=== PATIENT | female | born 1960 | race Caucasian/White ===

== ENCOUNTER → 2016-09-04 | Outpatient (CLI) | payer BC ==
[2016-09-04 19:18] LABS: CORTISOL AM 24.4 UG/DL (4.3-22.4); FOLATE > 24.0 NG/ML; VITAMIN B12 LEVEL 750 PG/ML
[2016-09-04 19:29] LABS: ALBUMIN 3.8 GM/DL (3.2-5.2); ALBUMIN/GLOBULIN RATIO 1.12 (1.00-1.93); ALKALINE PHOSPHATASE 71 U/L (45-117); ALT/SGPT 46 U/L (12-78); ANION GAP 8 MEQ/L (8-16); AST/SGOT 30 U/L (15-37); BILIRUBIN,TOTAL 0.4 MG/DL (0.2-1.0); BLOOD UREA NITROGEN 11 MG/DL (7-18); CARBON DIOXIDE LEVEL 29 MEQ/L (21-32); CHLORIDE LEVEL 102 MEQ/L (98-107); CHOLESTEROL LEVEL 194 MG/DL (<200); FERRITIN 45 NG/ML (8-252); FREE T4 1.38 NG/DL (0.76-1.46); GLOMERULAR FILTRATION RATE > 60.0 (>51); GLUCOSE, FASTING 92 MG/DL (70-105); POTASSIUM SERUM 4.4 MEQ/L (3.5-5.1); SODIUM LEVEL 139 MEQ/L (136-145); TOTAL PROTEIN 7.2 GM/DL (6.4-8.2); TRIGLYCERIDES LEVEL 86 MG/DL (<150)
--- NOTE | 2016-09-05 02:03 | REP ---
Clinical: Pain. Technique: Neutral and frog lateral views of the left hip. Findings: Age-related changes include subtle increased sclerosis to the acetabular roof with minimal joint space narrowing. No overt osteoarthritic degenerative changes are otherwise noted. No spurring/osteophyte formation or periarticular calcifications are identified. No evidence for acute or healed fracture/dislocation. Impression: Mild age-related changes. Signed by Melchor Davenport MD 09/05/2016 01:55 A
--- NOTE | 2016-09-05 02:06 | REP ---
Clinical: Pain . Technique: Internal rotation, external rotation, and Y view right shoulder . Findings: No acute fracture or dislocation. The acromioclavicular and glenohumeral joints are intact. No periarticular calcifications or degenerative changes are appreciated. Sub acromial space is normal. Surrounding soft tissues are unremarkable. Impression: Normal age appropriate right shoulder radiographs. Signed by Melchor Davenport MD 09/05/2016 01:56 A
== END ==
LOC: M LRY 10:05
PROVIDERS: ATTEND Nurse Practitioner Family
DX: M79.7 Fibromyalgia (principal); E78.5 Hyperlipidemia, unspecified; E03.9 Hypothyroidism, unspecified; F41.9 Anxiety disorder, unspecified; M25.552 Pain in left hip; M25.511 Pain in right shoulder

== ENCOUNTER → 2016-10-31 | Outpatient (CLI) | payer BC ==
[2016-10-31 17:44] LABS: MEAN CORPUSCULAR HEMOGLOBIN 30.8 pg (27.0-33.0); MEAN CORPUSCULAR VOLUME 93.4 fl (80.0-96.0); RED CELL DISTRIBUTION WIDTH 12.5 % (11.5-14.5); WHITE BLOOD COUNT 7.4 K/mm3 (4.0-10.0)
== END ==
LOC: M LRY 14:21
PROVIDERS: ATTEND Surgery
DX: K50.90 Crohn's disease, unspecified, without complications (principal)

== ENCOUNTER → 2016-12-19 | Outpatient (REF) | payer BC | LOC: M LAB REF 16:10 | PROVIDERS: ATTEND Obstetrics & Gynecology | DX: R35.0 Frequency of micturition (principal); R39.15 Urgency of urination ==

== ENCOUNTER → 2017-03-23 | Outpatient (CLI) | payer BC ==
[2017-03-23 18:55] LABS: FREE T4 1.15 NG/DL (0.76-1.46)
== END ==
LOC: M LRY 13:25
PROVIDERS: ATTEND Nurse Practitioner Family
DX: E03.9 Hypothyroidism, unspecified (principal)

== ENCOUNTER → 2017-05-20 | Outpatient (CLI) | payer BC ==
--- NOTE | 2017-05-20 14:51 | REP ---
Abdominal series: Four views. History: Abdominal pain. Comparison study: November 03, 2016. Findings: Upright chest radiograph is normal. There is no evidence of infiltrate or free subdiaphragmatic air. Heart is not enlarged. Supine and erect views of the abdomen demonstrate a normal bowel gas pattern with air and stool in a nondistended colon. No large or small bowel dilation is seen. Psoas margins and flank stripes are intact. There is no evidence of mass, organomegaly, or pathologic calcification. No significant air fluid level is seen. Impression: Negative abdominal series. Signed by Arcadio Adam MD 05/20/2017 03:18 P
== END ==
LOC: M LRY 11:51
PROVIDERS: ATTEND Nurse Practitioner Family
DX: R10.84 Generalized abdominal pain (principal)

== ENCOUNTER → 2017-06-29 | Outpatient (REF) | payer OTHER | LOC: M SFHCLERA 19:42 | PROVIDERS: ATTEND Nurse Practitioner Family | DX: R30.0 Dysuria (principal) ==

== ENCOUNTER → 2017-07-22 | Outpatient (REF) | payer OTHER | LOC: M LAB REF 17:00 | DX: N39.0 Urinary tract infection, site not specified (principal) ==

== ENCOUNTER → 2017-08-31 | Outpatient (CLI) | payer OTHER ==
[2017-08-31 12:46] LABS: ALBUMIN 3.7 GM/DL (3.2-5.2); ALBUMIN/GLOBULIN RATIO 1.09 (1.00-1.93); ALKALINE PHOSPHATASE 59 U/L (45-117); ALT/SGPT 40 U/L (12-78); ANION GAP 7 MEQ/L (8-16); AST/SGOT 37 U/L (7-37); BILIRUBIN,TOTAL 0.5 MG/DL (0.2-1.0); BLOOD UREA NITROGEN 10 MG/DL (7-18); CARBON DIOXIDE LEVEL 29 MEQ/L (21-32); CHLORIDE LEVEL 104 MEQ/L (98-107); CHOLESTEROL LEVEL 184 MG/DL (<200); CHOLESTEROL RISK RATIO 2.067 (<5); CREATININE FOR GFR 0.74 MG/DL (0.55-1.30); FREE T4 1.35 NG/DL (0.76-1.46); GLOMERULAR FILTRATION RATE > 60.0 (>51); GLUCOSE, FASTING 93 MG/DL (70-100); HDL CHOLESTEROL 89 MG/DL (>40); LDL CHOLESTEROL 82.8 MG/DL (<100); NON-HDL-C 95 MG/DL; POTASSIUM SERUM 4.3 MEQ/L (3.5-5.1); SODIUM LEVEL 140 MEQ/L (136-145); THYROID STIMULATING HORMONE 0.015 uIU/ML (0.358-3.740); TOTAL PROTEIN 7.1 GM/DL (6.4-8.2); TRIGLYCERIDES LEVEL 61 MG/DL (<150)
== END ==
LOC: M LRY 09:42
DX: I10 Essential (primary) hypertension (principal); E03.9 Hypothyroidism, unspecified; E78.5 Hyperlipidemia, unspecified
CPT/HCPCS: 84443

== ENCOUNTER → 2017-09-25 | Outpatient (CLI) | payer BC | LOC: M LRY 09:36 | DX: M50.30 Other cervical disc degeneration, unspecified cervical region (principal) | CPT/HCPCS: 72052 ==

== ENCOUNTER → 2018-02-22 | Outpatient (CLI) | payer BC ==
[2018-02-22 20:58] LABS: THYROID STIMULATING HORMONE 0.117 uIU/ML (0.358-3.740)
== END ==
LOC: M LRY 17:30
DX: E03.9 Hypothyroidism, unspecified (principal)
CPT/HCPCS: 84443

== ENCOUNTER → 2018-02-22 | Outpatient (REF) | payer BC | LOC: M SFHCLERA 09:32 | DX: L81.9 Disorder of pigmentation, unspecified (principal); Z86.008 Personal history of in-situ neoplasm of other site | CPT/HCPCS: 88305 ==

== ENCOUNTER → 2018-07-16 | Outpatient (REF) | payer BC ==
[2018-07-16 13:16] LABS: BASO # 0.1 10^3/uL (0.0-0.2); BASO % 1.1 % (0.0-1.0); EOS # 0.1 10^3/uL (0.0-0.50); EOS % 2.3 % (0.0-3.0); HEMATOCRIT 40.7 % (36.0-47.0); HEMOGLOBIN 13.4 g/dl (12.0-15.5); LYMPH % 37.3 % (24.0-44.0); MEAN CORPUSCULAR HEMOGLOBIN 30.7 pg (27.0-33.0); MEAN CORPUSCULAR HGB CONC 32.9 g/dl (32.0-36.5); MEAN CORPUSCULAR VOLUME 93.3 fl (80.0-96.0); MONO # 0.5 10^3/uL (0.0-0.8); NEUTROPHILS # 2.6 10^3/uL (1.8-7.7); NEUTROPHILS % 50.1 % (36.0-66.0); PLATELET COUNT, AUTOMATED 232 10^3/uL (150-450); RED BLOOD COUNT 4.36 10^6/uL (4.00-5.40); WHITE BLOOD COUNT 5.2 10^3/uL (4.0-10.0)
[2018-07-16 13:24] LABS: ALBUMIN 3.8 GM/DL (3.2-5.2); ALT/SGPT 35 U/L (12-78); BILIRUBIN,TOTAL 0.3 MG/DL (0.2-1.0); BLOOD UREA NITROGEN 12 MG/DL (7-18); CALCIUM LEVEL 8.8 MG/DL (8.5-10.1); CARBON DIOXIDE LEVEL 25 MEQ/L (21-32); CHLORIDE LEVEL 107 MEQ/L (98-107); CREATININE FOR GFR 0.97 MG/DL (0.55-1.30); GLOMERULAR FILTRATION RATE > 60.0 (>51); GLUCOSE, FASTING 84 MG/DL (70-100); POTASSIUM SERUM 3.8 MEQ/L (3.5-5.1); RHEUMATOID FACTOR QUANT < 10.0 IU/ML (<15.0); SODIUM LEVEL 139 MEQ/L (136-145); TOTAL PROTEIN 7.5 GM/DL (6.4-8.2)
[2018-07-16 13:31] LABS: FOLATE 19.8 NG/ML; VITAMIN B12 LEVEL 532 PG/ML
[2018-07-16 14:24] LABS: ERYTHROCYTE SEDIMENTATION RATE 7 mm/hr (0-30)
[2018-07-22 14:13] LABS: ANTINUCLEAR ANTIBODIES DIRECT Negative (Negative); CERULOPLASMIN 25.4 mg/dL (19.0-39.0); COPPER PLASMA 145 ug/dL (72-166); LEAD BLOOD ADULT 2 ug/dL (0-4); MERCURY LEVEL None Detected ug/L (0.0-14.9)
== END ==
LOC: M LABNEURO 09:13
PROVIDERS: ATTEND Psychiatry & Neurology Neurology
DX: G50.0 Trigeminal neuralgia (principal)

== ENCOUNTER → 2018-11-15 | Outpatient (CLI) | payer BC ==
[2018-11-18 00:07] LABS: Lyme Disease IgG/IgM Antibodie <0.91 ISR (0.00-0.90); Lyme Disease IgM Ab Quantitati <0.80 index (0.00-0.79)
== END ==
LOC: M LRY 11:02
PROVIDERS: ATTEND Nurse Practitioner Family
DX: G89.29 Other chronic pain (principal)

== ENCOUNTER → 2018-12-16 | Outpatient (CLI) | payer BC, OTHER ==
--- NOTE | 2018-12-16 13:10 | REP ---
Clinical: Pain with trauma. Technique: AP, lateral, bilateral oblique views of the left first digit. Findings: No acute fracture dislocation. Skeletal structures, joint spaces, and surrounding soft tissues appear relatively normal. No subcutaneous emphysema or foreign body. Impression: No acute fracture or dislocation. Electronically Signed by Melchor Davenport MD 12/16/2018 01:02 P
== END ==
LOC: M LRY 12:36
PROVIDERS: ATTEND Physician Assistant
DX: S69.92XA Unspecified injury of left wrist, hand and finger(s), initial encounter (principal); X58.XXXA Exposure to other specified factors, initial encounter; Y92.89 Other specified places as the place of occurrence of the external cause

== ENCOUNTER → 2018-12-21 | Outpatient (CLI) | payer BC, OTHER ==
[2018-12-21 11:38] LABS: ALBUMIN 3.6 GM/DL (3.2-5.2); ALT/SGPT 21 U/L (12-78); BILIRUBIN,TOTAL 0.4 MG/DL (0.2-1.0); BLOOD UREA NITROGEN 11 MG/DL (7-18); CALCIUM LEVEL 8.6 MG/DL (8.5-10.1); CARBON DIOXIDE LEVEL 27 MEQ/L (21-32); CHLORIDE LEVEL 108 MEQ/L (98-107); CHOLESTEROL LEVEL 193 MG/DL (<200); CHOLESTEROL RISK RATIO 2.144 (<5); CREATININE FOR GFR 0.87 MG/DL (0.55-1.30); GLOMERULAR FILTRATION RATE > 60.0 (>51); GLUCOSE, FASTING 90 MG/DL (70-100); HDL CHOLESTEROL 90 MG/DL (>40); LDL CHOLESTEROL 91 MG/DL (<100); NON-HDL-C 103 MG/DL; POTASSIUM SERUM 4.9 MEQ/L (3.5-5.1); SODIUM LEVEL 142 MEQ/L (136-145); THYROID STIMULATING HORMONE 0.821 uIU/ML (0.358-3.740); TOTAL PROTEIN 7.3 GM/DL (6.4-8.2); TRIGLYCERIDES LEVEL 62 MG/DL (<150)
== END ==
LOC: M LRY 09:35
PROVIDERS: ATTEND Nurse Practitioner Family
DX: E78.5 Hyperlipidemia, unspecified (principal); E03.9 Hypothyroidism, unspecified; I10 Essential (primary) hypertension

== ENCOUNTER 2019-05-30 13:22 | Emergency (ER) | payer BC, OTHER ==
[~2019-05-30] VITALS: Ht 172.7 cm; Wt 66.2 kg
[2019-05-30] MEDS ORDERED: ATOR1TAB19 PO (13:49)
[2019-05-30] MEDS ORDERED: TRAM50TA2 PO (13:49)
[2019-05-30] MEDS ORDERED: CLOB5CR TOP (13:49)
[2019-05-30] MEDS ORDERED: ESTR0.1C5 TOP (13:49)
[2019-05-30] MEDS ORDERED: TOPI25TA10 PO (13:49)
[2019-05-30] MEDS ORDERED: LEVO88TA3 PO (13:49)
[2019-05-30] MEDS ORDERED: BACL10TA2 PO (13:49)
[2019-05-30] MEDS ORDERED: ALPR0.5T3 PO (13:49)
[2019-05-30] MEDS ORDERED: VENL-37 PO (13:49)
[2019-05-30 14:33] LABS: BASO # 0.1 10^3/uL (0.0-0.2); BASO % 0.8 % (0.0-1.0); EOS # 0.1 10^3/uL (0.0-0.5); HEMATOCRIT 41.6 % (36.0-47.0); HEMOGLOBIN 13.3 g/dl (12.0-15.5); LYMPH # 1.6 10^3/uL (1.5-5.0); LYMPH % 25.3 % (24.0-44.0); MEAN CORPUSCULAR HEMOGLOBIN 30.7 pg (27.0-33.0); MEAN CORPUSCULAR VOLUME 96.1 fl (80.0-96.0); MONO # 0.4 10^3/uL (0.0-0.8); NEUTROPHILS # 4.1 10^3/uL (1.5-8.5); NEUTROPHILS % 66.7 % (36.0-66.0); PLATELET COUNT, AUTOMATED 253 10^3/uL (150-450); RED BLOOD COUNT 4.33 10^6/uL (4.00-5.40); WHITE BLOOD COUNT 6.2 10^3/uL (4.0-10.0)
[2019-05-30 14:57] LABS: ALBUMIN 3.8 GM/DL (3.2-5.2); ALT/SGPT 18 U/L (12-78); BILIRUBIN,DIRECT 0.1 MG/DL (0.0-0.2); BILIRUBIN,TOTAL 0.4 MG/DL (0.2-1.0); BLOOD UREA NITROGEN 17 MG/DL (7-18); CALCIUM LEVEL 9.1 MG/DL (8.8-10.2); CARBON DIOXIDE LEVEL 24 MEQ/L (21-32); CHLORIDE LEVEL 106 MEQ/L (98-107); CREATININE FOR GFR 0.88 MG/DL (0.55-1.30); GLOMERULAR FILTRATION RATE > 60.0 (>45); GLUCOSE, FASTING 94 MG/DL (70-100); LIPASE 95 U/L (73-393); POTASSIUM SERUM 4.3 MEQ/L (3.5-5.1); SODIUM LEVEL 141 MEQ/L (136-145); TOTAL PROTEIN 7.2 GM/DL (6.4-8.2)
--- NOTE | 2019-05-30 15:37 | REP ---
Abdominal aorta ultrasound: Abdominal Aortic Measurements are as follows: Proximal 2.0 cm AP 1.7 cm TRV Renal Artery Level 1.7 cm AP 1.7 cm TRV Mid Aorta 1.8 AP 1.7 cm TRV Distal Aorta 1.7 cm AP 1.8 cm TRV R Iliac Artery 1.0 cm AP 1.2 cm TRV L Iliac Artery 0.9 cm AP 1.0 cm TRV Impression: There is no evidence of abdominal aortic aneurysm. Electronically Signed by Stanford Graham MD 05/30/2019 03:29 P
[2019-05-30 16:06] VITALS: BP 125/58
== END 2019-05-30 16:07 | disposition home or self-care (01) ==
LOC: M ED 13:22
DX: R10.9 Unspecified abdominal pain (principal); G89.29 Other chronic pain; M79.7 Fibromyalgia; J30.2 Other seasonal allergic rhinitis; Z79.2 Long term (current) use of antibiotics; Z79.891 Long term (current) use of opiate analgesic; Z79.899 Other long term (current) drug therapy

== ENCOUNTER → 2019-06-03 | Outpatient (REF) ==
[~2019-06-03] MED LIST: ALPR0.5T3 PO; ATOR1TAB19 PO; BACL10TA2 PO; CLOB5CR TOP; ESTR0.1C5 TOP; LEVO88TA3 PO; TOPI25TA10 PO; TRAM50TA2 PO; VENL-37 PO
== END ==
LOC: M LAB LCGH 14:50
PROVIDERS: ATTEND Physician Assistant
DX: L57.0 Actinic keratosis (principal)

== ENCOUNTER 2019-07-19 11:54 | Emergency (ER) | payer BC ==
[~2019-07-19] VITALS: Ht 172.7 cm; Wt 65.9 kg
[2019-07-19 11:55] VITALS: BP 163/81
[2019-07-19] MEDS ORDERED: TRAM50TA2 PO (12:16)
== END 2019-07-19 12:25 | disposition home or self-care (01) ==
LOC: M ED 11:54
DX: Z76.0 Encounter for issue of repeat prescription (principal); Z79.899 Other long term (current) drug therapy

== ENCOUNTER → 2019-11-01 | Outpatient (CLI) | payer BC ==
[2019-11-01 20:01] LABS: HEMATOCRIT 39.3 % (36.0-47.0); HEMOGLOBIN 12.7 g/dl (12.0-15.5); MEAN CORPUSCULAR HEMOGLOBIN 30.9 pg (27.0-33.0); MEAN CORPUSCULAR HGB CONC 32.3 g/dl (32.0-36.5); MEAN CORPUSCULAR VOLUME 95.6 fl (80.0-96.0); PLATELET COUNT, AUTOMATED 272 10^3/uL (150-450); RED BLOOD COUNT 4.11 10^6/uL (4.00-5.40); WHITE BLOOD COUNT 7.3 10^3/uL (4.0-10.0)
[2019-11-02 13:48] LABS: BASO # 0.1 10^3/uL (0.0-0.2); BASO % 1.1 % (0.0-1.0); EOS # 0.2 10^3/uL (0.0-0.5); EOS % 2.4 % (0.0-3.0); LYMPH # 2.1 10^3/uL (1.5-5.0); LYMPH % 28.4 % (24.0-44.0); MONO # 0.6 10^3/uL (0.0-0.8); NEUTROPHILS # 4.3 10^3/uL (1.5-8.5); NEUTROPHILS % 59.8 % (36.0-66.0)
[2019-11-05 00:11] LABS: A1A FOR PHENOTYPE 141 mg/dL (101-187)
== END ==
LOC: M LRY 15:26
PROVIDERS: ATTEND Internal Medicine Pulmonary Disease
DX: R06.02 Shortness of breath (principal); J45.909 Unspecified asthma, uncomplicated

== ENCOUNTER → 2019-11-11 | Outpatient (CLI) | payer BC ==
--- NOTE | 2019-11-12 06:44 | REP ---
CT MAXILLOFACIAL BONES: CT maxillofacial bones performed in the axial plane with coronal reconstruction images. COMPARISON: Comparison made with prior study of 06/07/2015. HISTORY: There is a history of chronic sinusitis. FINDINGS: Sinuses are clear with no fluid or mucosal thickening. Ostiomeatal complexes are patent. Middle and inferior nasal turbinates are partially paradoxical. There is socrates bullosa of the right middle nasal turbinate. There is mild deviation of the nasal septum to the right. Remaining osseous structures are intact. Mastoid air cells are well aerated and clear with no abnormal opacification. IMPRESSION: No change since prior study. No evidence of sinusitis. Ostiomeatal complexes are clear. Electronically Signed by Stanford Carbone MD 11/14/2019 10:51 A
--- NOTE | 2019-11-12 06:55 | REP ---
CT CHEST WITHOUT IV CONTRAST: CT chest performed without IV contrast. Sagittal and coronal reconstruction images are performed. FINDINGS: There is minor scattered fibrotic change in both lungs. No infiltrate or consolidative opacity is seen. There is no suspicious nodule. Calcified granuloma seen in the right upper lobe. I see no evidence of axillary or mediastinal adenopathy. There is mild atherosclerotic calcification of the thoracic aorta without aneurysm. There is no pleural or pericardial effusion. The visualized upper abdominal structures are grossly unremarkable. IMPRESSION: Minor chronic changes in the lungs with no infiltrate or suspicious nodular opacity. Electronically Signed by Stanford Carbone MD 11/14/2019 10:51 A
== END ==
LOC: M RAD 14:01
PROVIDERS: ATTEND Internal Medicine Pulmonary Disease
DX: J18.9 Pneumonia, unspecified organism (principal); J32.9 Chronic sinusitis, unspecified

== ENCOUNTER → 2020-04-03 | Outpatient (REF) | payer BC, OTHER ==
[2020-04-03 16:10] LABS: APPEARANCE, URINE CLEAR (CLEAR); BACTERIA, URINE AUTO NEGATIVE (NEGATIVE); BILIRUBIN, URINE AUTO NEGATIVE (NEGATIVE); BLOOD, URINE BLOOD NEGATIVE (NEGATIVE); COLOR, URINE YELLOW (YELLOW); GLUCOSE, URINE (UA) AUTO NEGATIVE (NEGATIVE); KETONE, URINE AUTO NEGATIVE (NEGATIVE); LEUKOCYTE ESTERASE, URINE AUTO NEGATIVE (NEGATIVE); NITRITE, URINE AUTO NEGATIVE (NEGATIVE); PROTEIN, URINE AUTO NEGATIVE (NEGATIVE); RBC, URINE AUTO 1 /HPF (0-3); SPECIFIC GRAVITY URINE AUTO 1.004 (1.002-1.035); SQUAMOUS EPITHELIAL CELL UR AU 1 /HPF (0-6); UROBILINOGEN, URINE AUTO 0.2 mg/dL (0.0-2.0); WBC, URINE AUTO 1 /HPF (0-3)
== END ==
LOC: M LAB REF 15:15
PROVIDERS: ATTEND Obstetrics & Gynecology
DX: N39.0 Urinary tract infection, site not specified (principal)

== ENCOUNTER → 2021-02-25 | Outpatient (CLI) | payer BC ==
[2021-02-25 18:30] LABS: FERRITIN 12 NG/ML (8-252); FOLATE > 24.0 NG/ML; FREE T4 1.03 NG/DL (0.76-1.46); IRON (FE) 68 UG/DL (50-170); THYROID STIMULATING HORMONE 0.257 uIU/ML (0.358-3.740); VITAMIN B12 LEVEL 764 PG/ML
== END ==
LOC: M PLALAB 15:02
PROVIDERS: ATTEND Physician Assistant
DX: R53.82 Chronic fatigue, unspecified (principal)

== ENCOUNTER → 2021-04-26 | Outpatient (CLI) | payer BC ==
--- NOTE | 2021-04-29 15:49 | REPMRS ---
Patient History The patient states she had a clinical breast exam in 2020. Patient is postmenopausal and is nulliparous. Family history of unknown cancer in father. Taking estrogen for 25 years. 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 Technologist: Leatha Easton, Technologist Prior study comparison: June 23, 2016, bilateral digital mammo screening bilat, performed at [facility]. June 14, 2015, bilateral digital mammo screening bilat, performed at [facility]. June 07, 2014, bilateral digital mammo screening bilat, performed at [facility]. FINDINGS: There are scattered fibroglandular densities. The Volpara volumetric breast density category is:B. There has been no change in the appearance of the mammogram from the prior studies. There is a mild amount of scattered fibroglandular density which is fairly symmetric. There is no interval development of dominant mass, architectural distortion, or grouped microcalcification suggestive of malignancy. 3-D tomosynthesis shows no additional findings. Assessment: BI-RADS/ACR category 1 mammogram. Negative Mammogram. Recommendation Routine screening mammogram of both breasts in 1 year (for women over age 40). This patient's [facility] Lifetime Breast Cancer Risk is estimated at 5.4 %. This mammogram was interpreted with the aid of an FDA-approved computer-aided dectection system. Electronically Signed By: Pal Adam MD 04/29/21 [id number]
== END ==
LOC: M WHC 11:29
PROVIDERS: ATTEND Obstetrics & Gynecology
DX: Z12.31 Encounter for screening mammogram for malignant neoplasm of breast (principal)

== ENCOUNTER → 2021-11-06 | Outpatient (REF) | payer BC | LOC: M SFHCDERM 14:51 | PROVIDERS: ATTEND Physician Assistant | DX: L85.2 Keratosis punctata (palmaris et plantaris) (principal) ==

== ENCOUNTER → 2022-07-07 | Outpatient (REF) | payer BC | LOC: M SFHCDERM 16:54 | PROVIDERS: ATTEND Physician Assistant | DX: D49.2 Neoplasm of unspecified behavior of bone, soft tissue, and skin (principal) ==

== ENCOUNTER → 2022-07-09 | Outpatient (CLI) | payer BC ==
[2022-07-09 11:30] LABS: HEMATOCRIT 38.9 % (36.0-47.0); HEMOGLOBIN 12.9 g/dl (12.0-15.5); MEAN CORPUSCULAR HEMOGLOBIN 30.9 pg (27.0-33.0); MEAN CORPUSCULAR HGB CONC 33.2 g/dl (32.0-36.5); MEAN CORPUSCULAR VOLUME 93.3 fl (80.0-96.0); PLATELET COUNT, AUTOMATED 268 10^3/uL (150-450); RED BLOOD COUNT 4.17 10^6/uL (4.00-5.40); WHITE BLOOD COUNT 4.7 10^3/uL (4.0-10.0)
[2022-07-09 11:54] LABS: MAGNESIUM LEVEL 1.9 MG/DL (1.8-2.4)
[2022-07-09 11:56] LABS: ALBUMIN 3.9 G/DL (3.2-5.2); ALKALINE PHOSPHATASE 53 U/L (46-116); ALT/SGPT 16 U/L (7.0-40); AST/SGOT 17 U/L (<34); BILIRUBIN,TOTAL 0.5 MG/DL (0.3-1.2); BLOOD UREA NITROGEN 14 MG/DL (9-23); CALCIUM LEVEL 9.8 MG/DL (8.3-10.6); CARBON DIOXIDE LEVEL 30 MMOL/L (20-31); CHLORIDE LEVEL 98 MMOL/L (98-107); CHOLESTEROL LEVEL 268 MG/DL (<200); CHOLESTEROL RISK RATIO 3.02 (<5); CREATININE FOR GFR 0.89 MG/DL (0.55-1.30); GLOMERULAR FILTRATION RATE > 60.0 (>45); GLUCOSE, FASTING 87 MG/DL (74-106); HDL CHOLESTEROL 88.5 MG/DL (>40); LDL CHOLESTEROL 170.7 MG/DL (<100); NON-HDL-C 180 MG/DL; POTASSIUM SERUM 4.2 MMOL/L (3.5-5.1); SODIUM LEVEL 132 MMOL/L (136-145); THYROID STIMULATING HORMONE 3.546 uIU/ML (0.55-4.78); TOTAL PROTEIN 7.1 G/DL (5.7-8.2); TRIGLYCERIDES LEVEL 44 MG/DL (<150)
[2022-07-09 11:57] LABS: FREE T4 1.28 NG/DL (0.89-1.76)
== END ==
LOC: M LAB 10:49
PROVIDERS: ATTEND Physician Assistant Medical
DX: E03.9 Hypothyroidism, unspecified (principal); I10 Essential (primary) hypertension; E78.1 Pure hyperglyceridemia; E78.2 Mixed hyperlipidemia; E55.9 Vitamin D deficiency, unspecified

== ENCOUNTER → 2022-08-11 | Outpatient (REF) | payer BC | LOC: M PLALAB 14:15 | PROVIDERS: ATTEND Nurse Practitioner Family | DX: Z12.4 Encounter for screening for malignant neoplasm of cervix (principal) ==

== ENCOUNTER → 2022-10-08 | Outpatient (CLI) | payer BC ==
[2022-10-08 14:10] LABS: FREE T4 1.35 NG/DL (0.89-1.76); THYROID STIMULATING HORMONE 0.789 uIU/ML (0.55-4.78)
== END ==
LOC: M LAB 12:45
PROVIDERS: ATTEND Physician Assistant Medical
DX: E03.9 Hypothyroidism, unspecified (principal)

== ENCOUNTER → 2023-02-11 | Outpatient (CLI) | payer BC | LOC: M WHC 15:31 | PROVIDERS: ATTEND Physician Assistant Medical | DX: Z12.31 Encounter for screening mammogram for malignant neoplasm of breast (principal) ==

== ENCOUNTER → 2023-12-04 | Outpatient (CLI) | payer BC ==
[2023-12-04 13:57] LABS: BLOOD UREA NITROGEN 14 MG/DL (9-23); CALCIUM LEVEL 9.2 MG/DL (8.3-10.6); CARBON DIOXIDE LEVEL 26 MMOL/L (20-31); CHLORIDE LEVEL 101 MMOL/L (98-107); CREATININE FOR GFR 0.85 MG/DL (0.55-1.30); GLOMERULAR FILTRATION RATE > 60.0 (>45); GLUCOSE, FASTING 126 MG/DL (74-106); POTASSIUM SERUM 3.8 MMOL/L (3.5-5.1); SODIUM LEVEL 135 MMOL/L (136-145)
[2023-12-04 14:13] LABS: TOTAL 25(OH) VITAMIN D 61.4 NG/ML (20.0-100.0)
== END ==
LOC: M LAB 13:01
PROVIDERS: ATTEND Nurse Practitioner Family
DX: M85.89 Other specified disorders of bone density and structure, multiple sites (principal)

== ENCOUNTER → 2024-01-27 | Outpatient (REF) | payer MEDICARE ==
[2024-02-02 13:41] LABS: HPV APTIMA Not Detected (Not Detected)
== END ==
LOC: M SFHCWAGY 17:24
PROVIDERS: ATTEND Nurse Practitioner Family
DX: Z12.4 Encounter for screening for malignant neoplasm of cervix (principal)
CPT/HCPCS: 87624; G0123

== ENCOUNTER → 2024-01-27 | Outpatient (CLI) | payer BC, MEDICARE | LOC: M WHC 15:01 | PROVIDERS: ATTEND Nurse Practitioner Family | DX: Z12.31 Encounter for screening mammogram for malignant neoplasm of breast (principal) ==

== ENCOUNTER → 2024-11-15 | Outpatient (CLI) | payer MEDICARE ==
[2024-11-15 11:57] LABS: CALCIUM LEVEL 9.4 MG/DL (8.3-10.6)
[2024-11-15 12:03] LABS: TOTAL 25(OH) VITAMIN D 56.8 NG/ML (20.0-100.0)
== END ==
LOC: M LAB 11:04
PROVIDERS: ATTEND Nurse Practitioner Family
DX: M81.0 Age-related osteoporosis without current pathological fracture (principal)

== ENCOUNTER → 2025-04-27 | Outpatient (CLI) | payer MEDICARE ==
[~2025-04-27] MED LIST changes: +TOPI-256 PO; -TOPI25TA10 PO
== END ==
LOC: M WHC 10:09
PROVIDERS: ATTEND Obstetrics & Gynecology
DX: Z12.31 Encounter for screening mammogram for malignant neoplasm of breast (principal); R92.313 Mammographic fatty tissue density, bilateral breasts

== ENCOUNTER 2025-07-06 15:56 | Outpatient (CLI) | payer MEDICARE ==
[~2025-07-06] VITALS: Ht 170.2 cm; Wt 64.0 kg
[2025-07-06 16:25] VITALS: BP 155/70; O2SAT 99
[2025-07-06] MEDS: ZOLEDRONIC ACID 5 MG in IV 1 EA IV ONE (16:32)
[2025-07-06 17:25] VITALS: BP 140/65; O2SAT 100
== END 2025-07-06 17:25 | disposition home or self-care (01) ==
LOC: M INFU 15:56
PROVIDERS: ATTEND Nurse Practitioner Family
DX: M85.89 Other specified disorders of bone density and structure, multiple sites (principal); Z91.09 Other allergy status, other than to drugs and biological substances
CPT/HCPCS: 96365; J3489